=== PATIENT | female | born 1980 | race Two or more races ===

== ENCOUNTER 2016-09-22 21:14 | Emergency (ER) | payer OTHER ==
[2016-09-22 22:18] LABS: HCG,QUALITATIVE URINE NEGATIVE; URINE BILIRUBIN NEGATIVE (NEGATIVE); URINE BLOOD 1+ (NEGATIVE); URINE GLUCOSE (UA) NEGATIVE (NEGATIVE); URINE LEUKOCYTE ESTERASE TRACE (NEGATIVE); URINE NITRITE NEGATIVE (NEGATIVE); URINE PROTEIN 1+ (NEGATIVE); URINE UROBILINOGEN NORMAL (0-1 mg/dl)
[2016-09-22 22:19] LABS: URINE APPEARANCE CLEAR; URINE COLOR AMBER
[2016-09-22 22:33] LABS: URINE EPITHELIAL CELLS FEW /hpf
[2016-09-22 22:34] LABS: URINE BACTERIA FEW; URINE MUCUS 1+
[2016-09-22] MEDS ORDERED: HYDROMORPHONE HCL 0.5 MG/0.5 ML SYRINGE ONE (23:03)
[2016-09-22] MEDS ORDERED: KETOROLAC TROMETHAMINE 30 MG/ML 1 ML VIAL ONE (23:03)
[2016-09-22] MEDS ORDERED: ONDANSETRON 4 MG/2ML 2 ML VIAL ONE (23:03)
--- NOTE | 2016-09-23 08:13 | CT ---
Exam Type: ABD/PELVIS W/O CON Date and Time: 09/22/2016 11:00 PM Clinical information: Right flank pain. Comparison: None Procedure: Imaging device: [employer] Aquilion [address] scanner 1 mm axial images were obtained through the abdomen and pelvis. Stacked reconstructed 3, 4 and 5 mm images were photographed in the axial coronal and sagittal planes. No oral contrast was utilized for this examination. Exam: Without intravenous contrast. FINDINGS: Lung bases: On lung window image #2, there is a 4.7 mm noncalcified pulmonary nodule identified within the inferior aspect of the right middle lobe. Liver: There is a subtle low attenuation focus suggested within the left hepatic lobe which may reflect a small cyst. Spleen: The spleen is homogeneous and does not appear to be enlarged. Gallbladder: Normal without enlargement or evidence of adjacent inflammatory changes. Pancreas: Normal without enlargement or evidence of adjacent inflammatory changes. Adrenal glands: Normal without enlargement or evidence of adjacent inflammatory changes. Abdominal aorta: The aorta is of normal caliber and appears to be without significant atherosclerotic disease. Kidneys: There is a 10 mm low-attenuation focus within the left kidney with attenuation values of -86 Hounsfield units consistent with an angiomyolipoma. The right kidney appears larger than the left with prominence of the right renal collecting system and right ureter. A 3 mm intrarenal calculus is seen within the inferior pole of the right kidney. There are multiple pelvic phleboliths, though there appears to be a 4 mm calculus projecting within the region of the distal right ureter at the ureterovesicular junction. Moderate to severe right-sided hydronephrosis is present. Bowel structures: A few distal colonic diverticula are identified without associated inflammatory stranding. No evidence of obstruction is seen. There is a small hiatal hernia. Appendix: The appendix is well-visualized and appears to be of normal caliber. No periappendiceal inflammatory changes or CT findings of appendicitis are currently observed. Bladder: Nearly completely decompressed. Hernia: There is a small fat filled umbilical hernia visualized. Adenopathy: No significant enlarged adenopathy is visualized. Osseous structures: No discrete osseous abnormalities are identified. Pelvic structures: No discrete pelvic abnormalities are visualized in this examination. IMPRESSION: 1. A small right-sided intrarenal calculus with a 4 mm distal right sided intraureteral calculus located at the ureterovesicular junction with moderate to severe right-sided hydronephrosis. 2. 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 3. A probable small cyst within the left hepatic lobe. 4. A small hiatal hernia. 5. A normal appearance of the appendix without CT evidence of appendicitis. 6. A fat filled umbilical hernia. 7. Distal colonic diverticulosis without evidence to suggest diverticulitis. 8. A 4.7 mm noncalcified pulmonary nodule within the inferior right middle lobe. The patient is at low risk for pulmonary neoplasm, no further follow-up is recommended. If the patient is at high risk, additional CT imaging of the chest is recommended in 12 months to ensure stability. The findings were called to the emergency room at 0018 hours, 09/23/2016, by [facility].
== END 2016-09-23 00:48 | disposition home or self-care (01) ==
LOC: ED 21:14
DX: N20.1 Calculus of ureter (principal)
CPT/HCPCS: 81025; 87086; 81001; 74176; 96375 ×2; 99283 ×2; 96374; J1885; J2405; J1170